=== PATIENT | female | born 1970 | race Caucasian/White ===

== ENCOUNTER 2024-04-02 09:14 | Day surgery (SDC) | payer OTHER ==
[~2024-04-02] VITALS: Ht 157.5 cm; Wt 53.1 kg
[2024-04-02] MEDS ORDERED: fentaNYL citrate 0.05 MG/ML VIAL ONE (11:40)
[2024-04-02] MEDS ORDERED: MIDAZOLAM 5 MG/5 ML VIAL ONE (11:41)
[2024-04-02] MEDS: MIDAZOLAM 5 MG/5 ML VIAL IV ONE (12:47)
== END 2024-04-02 14:20 | disposition home or self-care (01) ==
LOC: MDS 09:14 → MMU 09:16 → MDS 14:20
PROVIDERS: ATTEND Internal Medicine Gastroenterology
DX: R13.10 Dysphagia, unspecified (principal); K21.00 Gastro-esophageal reflux disease with esophagitis, without bleeding; K44.9 Diaphragmatic hernia without obstruction or gangrene; K22.2 Esophageal obstruction; I10 Essential (primary) hypertension; E11.9 Type 2 diabetes mellitus without complications; J45.909 Unspecified asthma, uncomplicated; F32.A Depression, unspecified; Z79.899 Other long term (current) drug therapy; Z98.890 Other specified postprocedural states
CPT/HCPCS: 43235; 82948; J2250; J3010